=== PATIENT | female | born 1990 | race Caucasian/White ===

== ENCOUNTER 2016-11-16 14:45 | Emergency (ER) | payer OTHER ==
[~2016-11-16] VITALS: Ht 169.6 cm; Wt 73.0 kg
[~2016-11-16 14:45] MED LIST: AMOX500T2 PO; HYDR-4003 PO; PREN1TAB47
[2016-11-16 14:47] VITALS: BP 103/68; PULSE 104; RESP 16; O2SAT 100
--- NOTE | 2016-11-16 15:31 | ED.REPORT ---
HPI-Abd Pain F Under 38 Date of Service Nov 16, 2016 ED Provider: Yannick Almaraz DO Pt is a 26 y/o female w/ a hx of pyelonephritis presenting to the ED c/o left flank abdominal pain onset yesterday morning. The patient had an outpatient abd/ pelvis w/ contrast CT scan performed yesterday at [facility] which was interpreted as "No acute intra-abdominal findings. Normal appendix. No findings to explain left lower quadrant pain. Probable left renal cysts which are incompletely characterized. Nonemergent renal ultrasound may be helpful to further characterize findings if clinically indicated". Additionally she had a urinalysis yesterday that was unremarkable and not consistent with infection. She reports that the symptoms do feel similar to prior episodes of pyelonephritis. She went to see her PCP today because she was still having pain and was told to come here for further evaluation. She reports unintentional 25 lb weight loss in 1 month. Pt denies constipation, diarrhea, hematuria, dysuria, CP, SOB, fever, bloody stool. Nursing Notes Stated Complaint: LEFT SIDE ABD/BACK BACK Chief Complaint: Female Abdominal Pain Nursing Notes Reviewed: Yes Allergies: Coded Allergies: ciprofloxacin (Verified Adverse Reaction, Severe, vomiting, 11/16/16) levofloxacin (Verified Adverse Reaction, Severe, vomiting, 11/16/16) Scheduled Sulfamethoxazole/Trimeth 800-160 mg (Bactrim DS 800-160 mg) 1 Each Tablet 1 TABLET PO BID Scheduled PRN Naproxen (Naproxen) 500 Mg Tab 500 MG PO BID PRN PRN For Pain General Time Seen by MD: 15:18 Chief Complaint Abdominal pain Hx Obtained From: Patient Arrived By: Walk-in Sudden in Onset?: No Onset Occurred: Yesterday Symptom Duration: Since onset Progression since Onset: Unchanged Location: : LLQ Quality: Painful Severity: Current: Moderate Severity: Maximum: Moderate Recent Healthcare: Recent doctor visit, Recent testing Similar Sx Previous: No Past Medical History Past Medical History Hx pyelonephritis Past Surgical History Smoking History Current Every Day Smoker Social History Alcohol Use: Denies alcohol use Drug Use: Meth Ambulatory Status Independent Review of Systems Constitutional: Reports: Recent wt loss, Denies: Chills, Fever Respiratory: Denies: Non-productive cough, Shortness of breath Cardiovascular: Denies: Chest pain, Dyspnea on exertion, Edema GI: Reports: Abdominal pain, Denies: Bloody/tarry stool, Constipation, Diarrhea Female: Denies: Dysuria, Flank pain, Hematuria Complete sys rev & neg: except as marked. Physical Exam Initial Vital Signs Vital Signs (First) Date Time Temp Pulse Resp B/P Pulse Ox O2 Delivery O2 Flow Rate FiO2 11/16/16 14:47 36.5 104 16 103/68 100 Room Air Initial VS: Reviewed, Vital signs abnormal Head / Eyes: Atraumatic, Normocephalic, PERRL ENT: Mucous membranes moist, Conjunctiva normal, No scleral icterus Neck: Supple, Full range of motion Extremities: Vascular intact, Neuro intact, No swelling, No tenderness Skin: Warm, Dry, No cyanosis Neurologic: Alert, Oriented, Nonfocal Psychiatric: Mood/affect normal, Behavior normal, Normal thought content General/Constitutional: Awake, Alert, No acute distress, Cooperative, Not toxic appearing Appearance / Presentation: Positive: Uncomfortable Respiratory / Chest: Atraumatic, Breath sounds NL, Breath sounds = bilat, No respiratory distress, No rales, No rhonchi, No wheezing, No retractions, No stridor, No chest tenderness, No chest wall deformity, No crepitus Cardiovascular: Heart rate NL, Regular rhythm, Heart sounds NL, No gallop, No murmurs, No rubs, Cap refill not delayed, Peripheral circulation NL Abdomen: Atraumatic, Soft, No guarding, No rebound, No distention Tenderness/Guarding/Rebound: Negative: Tender LLQ..., Tender LUQ..., Tender RLQ..., Tender RUQ... Back: Full range of motion, Painless range of motion Left CVAT Interpretation & Diagnostics Lab Results Interpretation Result Diagram: 11/16/16 1541 11/16/16 1541 Test 11/16/16 15:41 11/16/16 16:23 White Blood Count 11.6th/mm3 (3.8-10.1) Red Blood Count 3.80mil/mm3 (3.90-5.20) Hemoglobin 11.4g/dL (12.0-15.6) Hematocrit 35.0% (35.0-46.0) Mean Corpuscular Volume 92.1fL (81-100) Mean Corpuscular Hemoglobin 30.0pg (27.0-35.0) Mean Corpuscular Hemoglobin Concent 32.6% (32.0-37.0) Red Cell Distribution Width 12.5% (12.3-15.4) Platelet Count 152bil/L (150-400) Neutrophils (%) (Auto) 72.5% (40-74) Lymphocytes (%) (Auto) 18.7% (14-46) Monocytes (%) (Auto) 8.5% (4-12) Eosinophils (%) (Auto) 0% (0-5) Basophils (%) (Auto) 0.1% (0-3) D-Dimer 0.55mg/L FEU (<0.50) Sodium Level 137mEq/L (134-144) Potassium Level 3.5mEq/L (3.5-5.2) Chloride Level 103mEq/L (97-108) Carbon Dioxide Level 21mmol/L (18-29) Blood Urea Nitrogen 16mg/dL (6-20) Creatinine 0.80mg/dL (0.57-1.00) Estimat Glomerular Filtration Rate 122mL/min (>59) Glucose Level 104mg/dL (60-99) Calcium Level 8.9mg/dL (8.5-10.1) Magnesium Level 1.8mg/dL (1.6-2.6) Total Bilirubin 0.4mg/dL (0.0-1.2) Aspartate Amino Transf (AST/SGOT) 15U/L (0-50) Alanine Aminotransferase (ALT/SGPT) 11U/L (0-32) Alkaline Phosphatase 40U/L (25-150) Total Protein 6.7g/dL (6.4-8.4) Albumin 3.6g/dL (3.4-5.0) Lipase 14U/L (13-60) Hold Argueta Top Tube Received (Received) Hold Urine Received (Received) Lab Results Interpretation: Urine dip: positive leukocytes, nitrites, protein, bilirubin, small ketones X-Ray Chest Interpretation Chest Xray Interpretation: IMPRESSION: Negative chest. No acute cardiopulmonary process is suspected. Dictated by: Josse Lr M.D. on 11/16/2016 at 15:48 Approved by: Josse Lr M.D. on 11/16/2016 at 15:49 View: Portable, 1 view Interpretation / Wet Read by: Interpret - Radiologist US Renal/Urinary Tract IMPRESSION: Hyperechoic foci are seen within the left kidney, corresponding to low density region seen by CT examination dated 11.15.16. Findings are most consistent with pyelonephritis. Recommend correlation with urinalysis. Dictated by: Anette Mancia M.D. on 11/16/2016 at 18:24 Approved by: Anette Mancia M.D. on 11/16/2016 at 18:26 Exam Performed by: Allied health pract Exam Interpreted by: Radiologist Re-Eval/Medical Decision Med Decision/Clinical Course Med Decision/Clinical Course: This patient has pyelonephritis. Physical exam, urinalysis dip, and renal ultrasound are consistent with this. A d-dimer was performed as the patient had flank pain of unclear etiology with reportedly having a normal urine and normal CAT scan yesterday. It is minimally outside of normal range, however her symptoms are completely not consistent with pulmonary embolism, and there is a very likely alternative diagnosis in the way of pyelonephritis. Pyelonephritis is identified based on a abnormal urinalysis today as well as a renal ultrasound which is consistent with pyelonephritis. After discussing these findings with the patient she agrees that her symptoms are consistent with pyelonephritis. She is feeling much better, she received 2 g of Rocephin in the ER, she will be treated with Bactrim and naproxen. Return in follow-up precautions given. Re-Evaluation/Progress : Time of Eval: 18:09 Re-Evaluation/Progress Note: Pt rechecked. Informed pt of plan for treatment. Pt understands and agrees with plan for treatment. F/U instructions and RTER warnings given. All questions addressed. Counseled Regarding: Diagnosis, Lab results, Need for follow-up, When/why to return to ED Discharge & Departure Primary Impression: Acute pyelonephritis Disposition: Home Discharge Condition All VS Reviewed: Yes Condition: Stable Patient Instructions: Acute Pyelonephritis (ED) Additional Instructions: Your urine dip was tremendously positive for urinary tract infection and your physical exam indicates that it has reached your kidney. The ultrasound is consistent with a kidney infection. Your vital signs are normal at this point and outpatient treatment is appropriate. Take the full course of antibiotics as prescribed. Return to the emergency department if you experience persistent vomiting, severe intractable pain, high fever, profound weakness or lethargy, or for other concerning symptoms. Follow-up with your primary care doctor on Sunday. Tell their office I recommended you be seen on this day. A urology referral has been provided. Call their office to set up an appointment to discuss your recurrent kidney infections. Referrals: Erin Carey PA-C (PCP) Jagruti Riggs MD Attestation Portions of this note were transcribed by Chago Diaz. I, Dr. Almaraz personally performed the history, physical exam and medical decision-making; I reviewed and confirmed the accuracy of the information in the transcribed note. Signed by Kj Garcia, 11/16/16 - [phone] copies to: Erin Carey PA-C, Timothy S DO Nov 16, 2016 15:31 CHAGO DIAZ Nov 16, 2016 15:35
[2016-11-16] MEDS ORDERED: 0.9% Sodium Chloride 1,000 ML IV ONE (15:32)
[2016-11-16] MEDS ORDERED: Ondansetron 2 mg/mL 2 mL Inj IVPUSH PRN (15:35)
[2016-11-16 15:54] LABS: BASOPHILS % (AUTO) 0.1 % (0-3); EOSINOPHILS % (AUTO) 0 % (0-5); MONOCYTES % (AUTO) 8.5 % (4-12); Mean Corpuscular Volume 92.1 fL (81-100); NEUTROPHILS % (AUTO) 72.5 % (40-74); Platelet Count 152 bil/L (150-400)
[2016-11-16] MEDS: HYDROmorphone 0.5 mg/0.5 mL iSecure Syringe IVPUSH PRN ×2 (16:08→17:33)
[2016-11-16 16:24] LABS: Magnesium 1.8 mg/dL (1.6-2.6)
[2016-11-16] MEDS ORDERED: cefTRIAXone Inj 2,000 MG in Dextrose 5% Minibag Plus 50 ML IV ONE (16:45)
--- NOTE | 2016-11-16 16:51 | DRSVH ---
PROCEDURE: X-RAY CHEST ONE VIEW, PORTABLE ([id number]) INDICATIONS: luq pain TECHNIQUE: One view of the chest was acquired. COMPARISON: None. FINDINGS: Surgical changes and devices: None. Lungs and pleura: No pleural effusions or pneumothorax. Lungs are clear. Mediastinum: Mediastinal contours appear normal. Heart size is normal. Bones and chest wall: No suspicious bony lesions. Overlying soft tissues appear unremarkable. The right breast shadow does not appear to be present, which may be related to differential size in breas t tissue. IMPRESSION: Negative chest. No acute cardiopulmonary process is suspected. Dictated by: Josse Lr M.D. on 11/16/2016 at 15:48 Approved by: Josse Lr M.D. on 11/16/2016 at 15:49
--- NOTE | 2016-11-16 18:27 | DRSVH ---
PROCEDURE: US RENAL SONOGRAM INDICATIONS: left flank pain TECHNIQUE: Real-time scanning was performed of the kidneys and bladder, with image documentation. COMPARISON: Outside Film, CT, CT ABDOMEN PELVIS W CONTRAST, 11/15/2016, 16:29. FINDINGS: Kidneys: Kidneys are normal in size. Right kidney measures 10.4 cm long; left kidney measures 11.7 cm long. Right renal cortical thickness is 1.2 cm; left renal cortical thickness is 1.9 cm. there i s a focal hyperechoic region within the superior pole left kidney measuring 33 mm. There is a focal h yperechoic region within the left interpolar kidney measuring 11 mm. Renal cortical echotexture is ot herwise normal. No hydronephrosis or nephrolithiasis. No suspicious solid mass lesions. Bladder: The urinary bladder is empty at the time of the examination. No ureteral jets are seen. Miscellaneous: No free pelvic fluid. IMPRESSION: Hyperechoic foci are seen within the left kidney, corresponding to low density region see n by CT examination dated 11.15.16. Findings are most consistent with pyelonephritis. Recommend correl ation with urinalysis. Dictated by: Anette Mancia M.D. on 11/16/2016 at 18:24 Approved by: Anette Mancia M.D. on 11/16/2016 at 18:26
[2016-11-16] MEDS ORDERED: SULF1TAB35 PO (18:35)
[2016-11-16] MEDS ORDERED: NPR500T PO (18:35)
[2016-11-16 18:47] VITALS: BP 94/63; PULSE 94; RESP 16; O2SAT 99
== END 2016-11-16 18:48 | disposition home or self-care (01) ==
LOC: SED 16:42
DX: N10 Acute pyelonephritis (principal); F17.200 Nicotine dependence, unspecified, uncomplicated; Z88.1 Allergy status to other antibiotic agents
CPT/HCPCS: 36415; 71010; 76770; 80053; 81025; 83690; 83735; 85025; 85378; 96361; 96365; 96375; 96376; 99285; J0696; J1170; J1885; J2405; J7030

== ENCOUNTER 2017-03-02 09:57 | Day surgery (SDC) | payer OTHER ==
[~2017-03-02] VITALS: Ht 170.2 cm; Wt 67.3 kg
[2017-03-02] VITALS (8 sets, daily range): BP systolic 95–112; BP diastolic 52–73; PULSE 44–73; RESP 11–18; O2SAT 100
--- NOTE | 2017-03-02 08:13 | PCM.HPANE ---
Patient Data Surgeon Admitting Provider: Attending Provider:Mark Reza MD Primary Care Physician:Erin Carey PA-C Other Provider:Kaci Law Anesthesia Reason for Visit Missed Ab Ht/WT & BMI Height (Feet): 5 Height (Inches): 6.5 Weight (Kilograms): 69.49 Body Mass Index 24.00 Allergies Coded Allergies: ciprofloxacin (Verified Adverse Reaction, Severe, vomiting, 03/02/17) levofloxacin (Verified Adverse Reaction, Severe, vomiting, 03/02/17) Past Anesthesia History Anesthesia History: Denies:: Abnormal Airway, Anesthesia Reactions, Difficult Intubation, Fam Anesthesia Reaction, Fam Malignant Hypertherm, Malignant Hyperthermia Diabetes History Hx Diabetes?: No MRSA MRSA: No Medications Hypertension Medication: No Home Meds Incl Beta Gerri: No Discontinued Scripts Naproxen 500 Mg [id number] Mg PO BID PRN For Pain #30 TABLET Prov:Yannick Almaraz DO 11/16/16 Sulfamethoxazole/Trimeth 800-160 mg (Bactrim DS 800-160 mg)1 Each Tablet1 Tablet PO BID #20 TABLET Prov:Yannick Almaraz DO 11/16/16 History History of ENT Problems?: No HEENT History: Denies:: Abnormal Airway Cataracts Difficult Intubation Dysphagia Glaucoma Hearing Problem Sinus Problem TMJ Denture Type: None Teeth Condition: Within Normal Limits Hx of Heart Problems?: No Cardiovascular History: Denies:: AICD Abdominal Aortic Aneurism Atrial Fibrillation Cardiac Surgery Congestive Heart Failure Heart Murmur (as child) Hypertension Irregular Heartbeat Pacemaker Peripheral Vascular Rheumatic Fever Hx of Respiratory Problem?: No Respiratory History: Denies:: Asthma COPD Emphysema Oxygen Administration Pneumonia Tuberculosis Use of C-PAP Machine Hx Neurologic Problems?: No Neurological History: Denies:: Alzheimer's Disease Dementia Dizziness Headaches Multiple Sclerosis Parkinson's Disease Seizures Hx of GI Problems?: No Gastrointestinal History: Denies:: Cirrhosis Diverticulitis Gall Bladder Disease Gastroesphageal Reflux Gastrointestinal Bleeding Heartburn Hepatitis Hiatal Hernia Liver Disease Rectal Bleeding Hx of Problems?: Yes Genitourinary History: Positive for:: Urinary Tract Infection (hx of recurrent UTI) Denies:: Kidney Stones HX of Peritoneal Dialysis: No Female Hx: Denies:: Currently (missed ab current admission problem) Problems with Breasts? Skin History: Denies:: History Skin Disorders? 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 Denies:: Blood Transfusions Hx Diabetes: No Hx Alcohol Use: NoHx Substance Use: Yes (marijuana- inhalant (pt denies meth use)) Smoking Status: Current Every Day Smoker Have You Smoked inLast 12 mo: Yes (5- 10 cigarettes daily) Stop/Bang Treated for Sleep Apnea?: No Do You Have a CPAP Machine?: No P-Blood Pressure: treated: No B- Body Mass Index > 35 kg/m2: No A- Age over 50: No N- Neck Large Circumference: No G- Gender Male: No [place] Category 4 OutPt Procedure: Yes Risk Assessment Category Category 1A: Patient has history of documented sleep apnea, and HAS NOT received any narcotic, sedative or anesthesia administration during this stay. Category 1B: Patient has history of documented sleep apnea, and HAS received any narcotic , sedative or anesthesia administration during this stay Category 2: Patient has SUSPECTED Obstructive Sleep Apnea, and HAS received any narcotic , sedative or anesthesia administration during this stay. Category 3: Patient has SUSPECTED Obstructive Sleep Apnea and HAS NOT received narcotic, sedative or anesthesia administration during this stay. Category 4: Outpatient in Procedural Areas with known sleep apnea or who screen positive for High Risk via the STOP/BANG questionnaire. Exam Exam General Appearance: Alert, Oriented X3, Cooperative, No Acute Distress HEENT/AIRWAY: MP 2 Lungs: Clear to Auscultation, Normal Air Movement Heart: Exam Unremarkable, Regular Rate/Rhythm, No Murmurs/Rubs/Gallops Plan Impression Patient chart reviewed, patient interviewed and anesthestic plan with risks, benefits, and alternatives discussed, and informed consent obtained. ASA Physical Status: ASA2 Mod Systemic Disease Anesthetic Plan: GA Bene/Risks/Altern/Consents: Yes HP Complete Prior to Induction: Yes Sushant Saucedo MD Mar 02, 2017 08:13
[~2017-03-02 09:57] MED LIST changes: -AMOX500T2 PO; +Dexamethasone 4 mg/mL Inj IVPUSH PRN; +EPHEDrine Sulfate 50 mg/mL Inj IVPUSH PRN; -HYDR-4003 PO; +HYDROmorphone 1 mg/mL Inj IVPUSH PRN; +Lactated Ringer's 500 ML IV PRN; +MetoCLOpramide 5 mg/mL 2 mL Inj IVPUSH PRN; +Ondansetron 2 mg/mL 2 mL Inj IVPUSH PRN; -PREN1TAB47; +Phenylephrine 10,000 mCg/mL Inj IVPUSH PRN
[2017-03-02] MEDS ORDERED: Propofol 10,000 mCg/mL 20 mL Inj ONE (09:58)
[2017-03-02] MEDS ORDERED: fentaNYL-PF 50 mCg/mL 2 mL Inj ONE (09:58)
[2017-03-02] MEDS ORDERED: Ondansetron 2 mg/mL 2 mL Inj ONE (09:58)
[2017-03-02] MEDS ORDERED: Dexamethasone 4 mg/mL Inj ONE (09:58)
[2017-03-02] MEDS ORDERED: Methylergonovine 0.2 mg/mL Inj ONE (09:58)
[2017-03-02] MEDS ORDERED: Ketamine 10 mg/mL 20 mL Inj ONE (09:58)
[2017-03-02] MEDS ORDERED: Lactated Ringer's 1,000 ML IV ONE ×3 (10:16→14:48)
[2017-03-02] MEDS: Lactated Ringer's 1,000 ML IV SCH ×2 (10:43→12:44)
[2017-03-02] MEDS ORDERED: Methylergonovine 0.2 mg/mL Inj IM ONE (13:13)
[2017-03-02] MEDS ORDERED: Ondansetron 2 mg/mL 2 mL Inj IVPUSH PRN (13:30)
[2017-03-02] MEDS ORDERED: diphenhydrAMINE 25 mg Capsule PO PRN (13:30)
[2017-03-02] MEDS ORDERED: oxyCODONE-Acetamin 5-325 mg Tablet PO PRN (13:30)
[2017-03-02] MEDS ORDERED: HYDROmorphone 1 mg/mL Inj IVPUSH PRN (13:30)
--- NOTE | 2017-03-02 13:31 | PCM.DIMED ---
Discharge Instructions Date of Service Mar 02, 2017 Dates of Hospitalization Diet Discharge Diet: No restrictions Activity Discharge Activity: No restrictions Call your provider Call your provider for: Fever or Chills, Shortness of breath, Bleeding, Chest pain, Vomitting, Excessive diarrhea, Weakness (unilateral) Patient Instructions Follow-up with PCP in: 2 weeks Mark Reza MD Mar 02, 2017 13:31
[2017-03-02] MEDS: fentaNYL-PF 50 mCg/mL 2 mL Inj IVPUSH PRN ×2 (13:40→13:45)
--- NOTE | 2017-03-02 14:49 | OP ---
[address] [address] OPERATIVE REPORT PATIENT: MT PEDROZA : 1990 MR#: [id number] ADMIT: 03/02/2017 JOB ID: [id number] DATE OF SURGERY: 03/02/2017 PROCEDURE: Suction, dilatation, curettage. PREOPERATIVE DIAGNOSIS(ES): Missed . POSTOPERATIVE DIAGNOSIS(ES): Missed . SURGEON: Mark Reza MD. MGMT ANALYST: None. ANESTHESIA: Sushant Saucedo MD. General. ESTIMATED BLOOD LOSS: 1000 mL. ESTIMATED URINE OUTPUT: 150 mL. FLUIDS: 800 mL of lactated Ringer. FINDINGS: Normal appearance of the perineum, vagina, and the cervix. The uterus is 8-10 weeks in size, retroflexed. PROCEDURE: The patient was brought to the operating room, where she underwent general anesthesia without difficulty. The patient was placed in the dorsal lithotomy position using Sukhi stirrups. She was prepped and draped in usual surgical fashion. She received preoperative antibiotics. Time-out was performed verifying correct patient, correct procedure. Barrett retractor was placed in the vagina. The cervix was identified and grasped with a tenaculum. Using Hegar dilators it was dilated to the size of 9 mm. With 9 mm curved suctioning curette, suction D and C was performed. Products of conception were removed. The patient had excessive bleeding that was brought under control with curettage using mid sized sharp curette, administration of 0.2 mg of Methergine IM and bimanual massage of the uterus. The bleeding was subsided. The specimen products of conception were sent to Pathology. The cervix was examined. There was no oozing at the tenaculum insertion points. It looked normal. All the instruments were removed. The patient was repositioned back into the supine position. She tolerated the procedure well and was transferred to the recovery room in stable.
--- NOTE | 2017-03-05 08:16 | PCM.ANEP1 ---
Post Anesthesia PACU Phase 1 Assessment Anesthetic Administered: GA Level of Alertness: Awake, talking SEE's with Equal Strength: Yes Pain: No Nausea or Vomiting: No CV Function & Hydration Stable: Yes Airway Device: Oralpharangeal Airway Oxygen Delivery: Simple Mask Lungs: Clear to Auscultation, Normal Air Movement Dermatome Level: Full Sensation PACU Phase 2 Assessment Complications: No Follow up Care: No Patient Instructions Provided: N/A Sushant Saucedo MD Mar 05, 2017 08:16
--- NOTE | 2017-03-05 19:29 | PATH ---
SURGICAL PATHOLOGY Attending Physician:Mark Reza MD CASE STATUS: Signed Out PATIENT NAME: MT PEDROZA PID: [id number] : 1990 DATE COLLECTED:03/02/2017 00:00 SPECIMEN: Products of conception CLINICAL HISTORY: MISSED 1). PRODUCTS OF CONCEPTION FINAL DIAGNOSIS: 1.PRODUCTS OF CONCEPTION: PRODUCTS OF CONCEPTION IDENTIFIED. ICD10 O02.1 GROSS DESCRIPTION: The specimen is received in one formalin filled container labeled with the patient's name, sublabeled "products of conception" and consists of multiple portions of tissue which aggregate to 6.0 x 4.0 x 1.5 CM. No grossly recognizable parts are observed. Rep. sections are submitted in 2 cassettes. 03/03/2017AK MICRO DESCRIPTION: See diagnosis. ICD-9 CODES: CPT CODES: 1: 03941 Electronically Signed Out Mara Peterson MD [facility] Pathology [facility] [address], [place] [address] Technical component performed at [facility], [facility], [facility] [address], [place], [address]
== END 2017-03-02 23:59 | disposition home or self-care (01) ==
LOC: SAS 09:57
PROVIDERS: ATTEND Legal Medicine
DX: O02.1 Missed abortion (principal); F43.10 Post-traumatic stress disorder, unspecified; F41.9 Anxiety disorder, unspecified; F17.210 Nicotine dependence, cigarettes, uncomplicated; F12.90 Cannabis use, unspecified, uncomplicated; Z87.440 Personal history of urinary (tract) infections; Z3A.10 10 weeks gestation of pregnancy
CPT/HCPCS: 59820; J1100; J2175; J2210; J2250; J2405; J3010; J7120